=== PATIENT | male | born 1955 | race Caucasian/White ===

== ENCOUNTER → 2017-10-17 | Outpatient (CLI) | payer OTHER ==
[2017-10-17 17:38] LABS: PSA SCREENING 0.62 NG/ML (< 4.0)
[2017-10-17 18:50] LABS: APPEARANCE, URINE CLEAR (CLEAR); BACTERIA, URINE AUTO NEGATIVE (NEGATIVE); BILIRUBIN, URINE AUTO NEGATIVE (NEGATIVE); BLOOD, URINE BLOOD NEGATIVE (NEGATIVE); COLOR, URINE STRAW (YELLOW); GLUCOSE, URINE (UA) AUTO NEGATIVE (NEGATIVE); KETONE, URINE AUTO NEGATIVE (NEGATIVE); LEUKOCYTE ESTERASE, URINE AUTO NEGATIVE (NEGATIVE); NITRITE, URINE AUTO NEGATIVE (NEGATIVE); PROTEIN, URINE AUTO NEGATIVE (NEGATIVE); RBC, URINE AUTO 1 /HPF (0-3); SPECIFIC GRAVITY URINE AUTO 1.012 (1.002-1.035); SQUAMOUS EPITHELIAL CELL UR AU 0 /HPF (0-6); UROBILINOGEN, URINE AUTO 0.2 mg/dL (0.0-2.0); WBC, URINE AUTO 1 /HPF (0-3)
== END ==
LOC: M SMT 15:57
DX: Z12.5 Encounter for screening for malignant neoplasm of prostate (principal); R35.0 Frequency of micturition
CPT/HCPCS: G0103

== ENCOUNTER → 2017-11-09 | Outpatient (REF) | payer OTHER ==
[2017-11-09 14:35] LABS: IMMUNOGLOBULIN G 757 MG/DL (681-1648); IMMUNOGLOBULIN M 59.3 MG/DL (40-230); TOTAL PROTEIN 6.9 GM/DL (6.4-8.2)
[2017-11-11 00:06] LABS: FREE KAPPA LIGHT CHAINS SERUM 9.1 mg/L (3.3-19.4); FREE LAMBDA LIGHT CHAINS SERUM 12.5 mg/L (5.7-26.3); KAPPA/LAMBDA RATIO SERUM 0.73 (0.26-1.65)
[2017-11-14 11:05] LABS: ALBUMIN 4.54 GM/DL (3.29-5.55); ALBUMIN % 65.8 % (55.8-66.1); ALPHA-1-GLOBULIN % 4.1 % (2.9-4.9); ALPHA-1-GLOBULINS 0.28 GM/DL (0.17-0.41); ALPHA-2-GLOBULINS 0.64 GM/DL (0.42-0.99); ALPHA-2-GLOBULINS % 9.3 % (7.1-11.8); BETA-1-GLOBULINS 0.43 GM/DL (0.28-0.60); BETA-1-GLOBULINS % 6.2 % (4.7-7.2); BETA-2-GLOBULINS % 4.3 % (3.2-6.5); GAMMA GLOBULIN % 10.3 % (11.1-18.8); GAMMA GLOBULINS 0.71 GM/DL (0.65-1.58)
== END ==
LOC: M LAB REF 13:34
DX: C90.00 Multiple myeloma not having achieved remission (principal)

== ENCOUNTER → 2017-11-13 | Outpatient (CLI) | payer OTHER | LOC: M RAD 10:01 | DX: C90.00 Multiple myeloma not having achieved remission (principal); M79.621 Pain in right upper arm | CPT/HCPCS: 78306 ==

== ENCOUNTER → 2021-03-05 | Outpatient (CLI) | payer OTHER | LOC: M RAD 15:44 | PROVIDERS: ATTEND Physician Assistant | DX: M79.604 Pain in right leg (principal) ==

== ENCOUNTER → 2022-10-07 | Outpatient (CLI) | payer MEDICARE, OTHER | LOC: M PLAIMG 13:47 | PROVIDERS: ATTEND Physician Assistant | DX: S46.912D Strain of unspecified muscle, fascia and tendon at shoulder and upper arm level, left arm, subsequent encounter (principal); Y93.9 Activity, unspecified; Y92.9 Unspecified place or not applicable ==

== ENCOUNTER → 2023-07-13 | Outpatient (CLI) | payer MEDICARE, OTHER | LOC: M SLEEP 20:00 | PROVIDERS: ATTEND Nurse Practitioner Adult Health | DX: G47.33 Obstructive sleep apnea (adult) (pediatric) (principal) ==

== ENCOUNTER → 2023-07-22 | Outpatient (CLI) | payer MEDICARE, OTHER | LOC: M SLEEP 20:00 | PROVIDERS: ATTEND Nurse Practitioner Adult Health | DX: G47.33 Obstructive sleep apnea (adult) (pediatric) (principal) ==